=== PATIENT | male | born 1995 | race Caucasian/White ===

== ENCOUNTER 2016-06-27 17:49 | Emergency (ER) | payer OTHER ==
[2016-06-27 18:20] VITALS: TEMP 97.7; BMI 30.9
--- NOTE | 2016-06-27 18:20 | PDOC ---
Rapid Medical Evaluation Time Seen by Provider: 06/27/16 18:14 Medical Evaluation: Allergies Allergy/AdvReac Type Severity Reaction Status Date / Time APPLES Allergy Mild Itching Uncoded 03/13/15 19:05 ORANGES Allergy Mild Uncoded 03/13/15 19:05 SHRIMP Allergy Hives Uncoded 03/13/15 19:05 06/27/16 18:15 I have performed a brief in-person evaluation of this patient. The patient presents with a chief complaint of: weakness/ feeling of faintness. , Sweating- denies CP or palpitaions. Mothere took BP (is EMT) and told him had an irregular heartbeat. NO Hx of Cardiac arhythmias noncompliant with Abilify - States has Bipolar disease but "doesnt remember whatr medicatrions he is supposed to be" Pertinent physical exam findings: appears cognitively "scattered", has to be redirected to answer questions" I have ordered the following: RBS, EKG The patient will proceed to the ED for further evaluation. 06/27/16 18:22
--- NOTE | 2016-06-27 20:13 | PDOC ---
History of Present Illness - General Chief Complaint: Weakness Stated Complaint: IRREGULAR HEART BEAT Time Seen by Provider: 06/27/16 18:14 - History of Present Illness Initial Comments: 06/27/16 20:12 CHIEF COMPLAINT: "irregular heartbeat" HISTORY OF PRESENT ILLNESS: 20 yo M on Abiliedison (patient is unsure of diagnosis ) presents to ED with "irregular heartbeat" 6 days ago. Patient states that he was "feeling funny" last with "stomach pain, a little nausea, headache , dizziness, and I almost fainted." He states that his mother took his blood pressure and told him he had an "irregular heartbeat." At that time she gave him food to "bring up my blood sugar" and the symptoms resolved. Earlier today he felt "the symptoms were maybe starting again" but then he drank some water and felt better. He has no complaints at this time, including chest pain, shortness of breath, fever, chills, nausea, vomiting, headache, dizziness, or weakness, but states that "he just wanted to get checked out." No recent travel or sick contacts. PAST MEDICAL HISTORY: Denies past medical history FAMILY HISTORY: Denies SOCIAL HISTORY: Denies tobacco, alcohol, illicit drug use. SURGICAL HISTORY: Denies ALLERGIES: apples, oranges, shrimp REVIEW OF SYSTEMS General/Constitutional: Denies fever or chills. Denies weakness, weight change. HEENT: Denies change in vision. Denies ear pain or discharge. Denies sore throat. Cardiovascular: Denies chest pain or shortness of breath. Respiratory: Denies cough, wheezing, or hemoptysis. Gastrointestinal: Denies nausea, vomiting, diarrhea or constipation. Denies rectal bleeding. Genitourinary: Denies dysuria, frequency, or change in urination. Musculoskeletal: Denies joint or muscle swelling or pain. Denies neck or back pain. Skin and breasts: Denies rash or easy bruising. Neurologic: Denies headache, vertigo, loss of consciousness, or loss of sensation. PHYSICAL EXAM General Appearance: Well-appearing, appropriately dressed, playing video games in stretcher. No apparent distress. HEENT: EOMI, PERRLA. No conjunctival pallor. No photophobia, scleral icterus. Respiratory/Chest: Lungs CTAB. Cardiovascular: RRR. S1, S2. Gastrointestinal/Abdominal: Normal bowel sounds. Abdomen soft, non-distended. No tenderness or rebound tenderness. No organomegaly, pulsatile mass, guarding , hernia, hepatomegaly, splenomegaly. Musculoskeletal/Extremities: Normal inspection. FROM of all extremities, normal capillary refill. Pelvis Stable. No CVA tenderness. No tenderness to extremities, pedal edema, swelling, erythema or deformity. Integumentary: Appropriate color, dry, warm. No cyanosis, erythema, jaundice or rash Neurologic: plastics design engineer II-XII intact. Fully oriented, alert. Motor strength 5/5. No appreciable EOM palsy, facial droop or sensory deficit. Psych: Somewhat flat affect, easily distracted. 06/28/16 04:56 Past History - Past Medical History Allergies/Adverse Reactions: Allergies Allergy/AdvReac Type Severity Reaction Status Date / Time APPLES Allergy Mild Itching Uncoded 06/27/16 18:20 ORANGES Allergy Mild Uncoded 06/27/16 18:20 SHRIMP Allergy Hives Uncoded 06/27/16 18:20 Home Medications: Ambulatory Orders Aripiprazole [Abilify -] 12 mg PO DAILY 11/19/12 Asthma: Yes Psychiatric Problems: Yes (ANXIETY) Suicide Attempt (Hx): No - Immunization History Td Vaccination: No (HAS PERTUSSIS) TDAP Vaccination: No (HAS ACTIVE PERTUSSIS) Immunization Up to Date: Yes - Psycho/Social/Smoking Cessation Hx Anxiety: Yes Suicidal Ideation: No Smoking Status: No Smoking History: Never smoked Have you smoked in the past 12 months: No Number of Cigarettes Smoked Daily: 0 Hx Alcohol Use: No Drug/Substance Use Hx: No Substance Use Type: None *Physical Exam - Vital Signs Last Vital Signs Temp Pulse Resp BP Pulse Ox 97.7 F 86 20 126/69 98 06/27/16 18:16 06/27/16 18:16 06/27/16 18:16 06/27/16 18:16 06/27/16 18:16 ED Treatment Course - LABORATORY CBC & Chemistry Diagram: 06/27/16 21:41 06/27/16 21:41 Medical Decision Making - Medical Decision Making 06/28/16 04:56 20 yo M on Abilify (patient is unsure of diagnosis) presents to ED with "irregular heartbeat" 6 days ago. -CBC, CMP Labs unremarkable. Advised patient and mother of signs and symptoms for return to ER. Advised patient and mother to follow up with radiologic electronic specialist by the end of this week. Mother and patient verbalize understanding and agree to plan. *DC/Admit/Observation/Transfer Diagnosis at time of Disposition: Lightheaded - Discharge Dispostion Disposition: HOME Condition at time of disposition: Stable Admit: No - Referrals Referrals: Carmen Monroy MD [Primary Care Provider] - Michael Colón MD [Staff Physician] - - Patient Instructions Additional Instructions: As discussed, you must follow up with your primary care doctor's office and cardiology THIS WEEK. If you experience any new or worsening symptoms, please return to the ER immediately.
--- NOTE | 2016-06-27 21:18 | PDOC ---
*Physical Exam - Vital Signs Last Vital Signs Temp Pulse Resp BP Pulse Ox 97.7 F 86 20 126/69 98 06/27/16 18:16 06/27/16 18:16 06/27/16 18:16 06/27/16 18:16 06/27/16 18:16 ED Treatment Course - LABORATORY CBC & Chemistry Diagram: 06/27/16 21:41 06/27/16 21:41 Medical Decision Making - Medical Decision Making 06/27/16 21:17 agree with care from CAROLINE Flores. *DC/Admit/Observation/Transfer Diagnosis at time of Disposition: Lightheaded - Discharge Dispostion Disposition: HOME Condition at time of disposition: Stable - Referrals Referrals: Carmen Monroy MD [Primary Care Provider] - Michael Colón MD [Staff Physician] - - Patient Instructions Additional Instructions: As discussed, you must follow up with your primary care doctor's office and cardiology THIS WEEK. If you experience any new or worsening symptoms, please return to the ER immediately.
[2016-06-27 21:56] LABS: BASOPHIL 0.8 % (0-2.0); EOSINOPHIL 5.4 % (0-4.5); MCH 32.4 pg (25.7-33.7); MCHC 35.5 g/dl (32.0-35.9); MEAN CELL VOLUME 91.3 fl (80-96); MEAN PLT VOLUME 7.6 fl (7.5-11.1); NEUTROPHILS 61.1 % (42.8-82.8); PLATELET COUNT 262 K/MM3 (134-434); RDW 12.7 % (11.9-15.9); WHITE BLOOD COUNT 7.4 K/mm3 (4.0-10.0)
[2016-06-27 22:16] LABS: ALBUMIN 4.5 g/dl (3.4-5.0); ANION GAP 8 (8-16); BILIRUBIN,TOTAL 0.5 mg/dL (0.2-1.0); CALCIUM 9.2 mg/dL (8.5-10.1); CO2 29 mmol/L (21-32); CREATININE 1.1 mg/dL (0.7-1.3); GLUCOSE,RANDOM 104 mg/dL (74-106); SGOT/AST 17 U/L (15-37); SGPT/ALT 30 U/L (12-78); TOT PROT 7.7 g/dl (6.4-8.2)
[2016-06-27 22:17] LABS: ALK PHOS 75 U/L (45-117)
[2016-06-27 22:45] VITALS: BP 114/68; PULSE 77
--- NOTE | 2016-06-28 17:08 | EKG ---
Test Reason : Blood Pressure : / mmHG Vent. Rate : 067 BPM Atrial Rate : 067 BPM P-R Int : 150 ms QRS Dur : 104 ms QT Int : 386 ms P-R-T Axes : 065 044 024 degrees QTc Int : 407 ms SINUS RHYTHM WITH MARKED SINUS ARRHYTHMIA RSR' OR QR PATTERN IN V1 SUGGESTS RIGHT VENTRICULAR CONDUCTION DELAY BORDERLINE ECG NO PREVIOUS ECGS AVAILABLE Confirmed by RUSSELL TAPIA MD ([id number]) on 06/28/2016 5:08:19 PM Referred By: Confirmed By:RUSSELL TAPIA MD
== END 2016-06-27 22:51 | disposition home or self-care (01) ==
LOC: JER 17:49
DX: R42 Dizziness and giddiness (principal); F41.9 Anxiety disorder, unspecified; A37.90 Whooping cough, unspecified species without pneumonia; J45.909 Unspecified asthma, uncomplicated
CPT/HCPCS: 36415; 80053; 85025; 93005; 93010; 99283-25

== ENCOUNTER 2017-04-25 03:40 | Emergency (ER) | payer OTHER ==
[2017-04-25 04:07] VITALS: BP 118/72; PULSE 76; TEMP 97.6; BMI 31.0
--- NOTE | 2017-04-25 04:34 | PDOC ---
Attending Attestation - HPI HPI: 04/25/17 04:36 The patient is a 21 year old male, with a significant past medical history of, who presents to the emergency department with one episode of white stool at 2am this morning. The patient denies any other symptoms. He denies chest pain, shortness of breath, headache and dizziness. He denies fever, chills, nausea, vomit, diarrhea and constipation. He denies dysuria, frequency, urgency and hematuria. Allergies: NKDA - Physicial Exam PE: 04/25/17 04:36 GENERAL: Well developed, well nourished. Awake and alert. No acute distress. HEENT: Normocephalic, atraumatic. PERRLA, EOMI. No conjunctival pallor. Sclera are non- icteric. Moist mucous membranes. Oropharynx is clear. NECK: Supple. Full ROM. No JVD. Carotid pulses 2+ and symmetric, without bruits. No thyromegaly. No lymphadenopathy. CARDIOVASCULAR: Regular rate and rhythm. No murmurs, rubs, or gallops. Distal pulses are 2+ and symmetric. PULMONARY: No evidence of respiratory distress. Lungs clear to auscultation bilaterally. No wheezing, rales or rhonchi. ABDOMINAL: Soft. Non-tender. Non-distended. No rebound or guarding. No organomegaly. Normoactive bowel sounds. MUSCULOSKELETAL Normal range of motion at all joints. No bony deformities or tenderness. No CVA tenderness. EXTREMITIES: No cyanosis. No clubbing. No edema. No calf tenderness. SKIN: Warm and dry. Normal capillary refill. No rashes. No jaundice. NEUROLOGICAL: Alert, awake, appropriate. Cranial nerves 2-12 intact. Normoreflexic in the upper and lower extremities. Normal speech. Toes are down-going bilaterally. Gait is normal without ataxia. PSYCHIATRIC: Cooperative. Good eye contact. Appropriate mood and affect. ___ Documentation prepared by Lili Phipps, acting as medical dosimetrist for Neo Corona DO. <Lili Phipps - Last Filed: 04/25/17 04:36> - Resident Resident Name: Kamryn Castro - ED Attending Attestation I have performed the following: I have examined & evaluated the patient, The case was reviewed & discussed with the resident, I agree w/resident's findings & plan, Exceptions are as noted - Medical Decision Making 04/25/17 20:32 Pt treated and released <Neo Corona - Last Filed: 04/25/17 20:33>
--- NOTE | 2017-04-25 04:49 | PDOC ---
History of Present Illness - General Chief Complaint: Rectal Bleed Stated Complaint: WHITE STOOL Time Seen by Provider: 04/25/17 04:12 History Source: Patient Exam Limitations: No Limitations - History of Present Illness Initial Comments: This is a 21 YOM with h/o GERD (on ranitidine), asthma, and abilify use who presents c/o one episode of white stool this morning at 2 am. He explains that his mother was concerned and wanted him to come to the ED to be examined and to have a sample of his stool tested. The patient denies any additional symptoms ( no recent fever, chills, nausea, vomiting, diarrhea, constipation, bloody stool , black stool, abdominal pain, urinary symptoms, or other symptoms). He had URI symptoms about two weeks ago. He denies any contact with sick individuals recently. Past History - Past Medical History Allergies/Adverse Reactions: Allergies Allergy/AdvReac Type Severity Reaction Status Date / Time No Known Drug Allergies Allergy Verified 04/25/17 04:32 APPLES Allergy Mild Itching Uncoded 06/27/16 18:20 ORANGES Allergy Mild Itching Uncoded 04/25/17 04:31 SHRIMP Allergy Mild Hives Uncoded 04/25/17 04:30 Home Medications: Ambulatory Orders Aripiprazole [Abilify -] 12 mg PO DAILY 11/19/12 Ranitidine HCl [Zantac] 300 mg PO DAILY 04/25/17 Asthma: Yes COPD: No Psychiatric Problems: Yes (Anxiety) - Immunization History Td Vaccination: No (HAS PERTUSSIS) TDAP Vaccination: No (HAS ACTIVE PERTUSSIS) Immunization Up to Date: Yes - Suicide/Smoking/Psychosocial Hx Smoking Status: No Smoking History: Never smoked Have you smoked in the past 12 months: No Number of Cigarettes Smoked Daily: 0 Information on smoking cessation initiated: No Hx Alcohol Use: No Drug/Substance Use Hx: No Substance Use Type: None Review of Systems - Review of Systems Able to Perform ROS?: Yes Constitutional: No: Chills, Fever, Unexplained wgt Loss HEENTM: No: Nose Congestion, Throat Pain Respiratory: No: Cough, Shortness of Breath Cardiac (ROS): No: Chest Pain, Palpitations ABD/GI: Yes: Other (white stool). No: Constipated, Diarrhea, Nausea, Vomiting : No: Burning, Dysuria Musculoskeletal: No: Back Pain, Neck Pain Integumentary: No: Bruising, Rash Neurological: No: Headache, Numbness, Tingling, Weakness, Dizziness Endocrine: No: Unexplained Weight Gain, Unexplained Weight Loss *Physical Exam - Vital Signs Last Vital Signs Temp Pulse Resp BP Pulse Ox 97.6 F 76 20 118/72 99 04/25/17 04:05 04/25/17 04:05 04/25/17 04:05 04/25/17 04:05 04/25/17 04:05 - Physical Exam General Appearance: Yes: Nourished, Appropriately Dressed, Other (pleasant young adult male accompanied by similar-age male dental director, answers questions appropriately, standing for the duration of exam). No: Apparent Distress HEENT: positive: EOMI, BRENNAN, Normal Voice, Hearing Grossly Normal. negative: Scleral Icterus (R), Scleral Icterus (L), Nasal Congestion Neck: positive: Trachea midline, Supple. negative: Tender, Rigid Respiratory/Chest: positive: Lungs Clear, Normal Breath Sounds. negative: Respiratory Distress, Crackles, Rhonchi, Stridor, Wheezing Cardiovascular: positive: Regular Rhythm, Regular Rate. negative: Edema, Murmur Gastrointestinal/Abdominal: positive: Normal Bowel Sounds, Flat, Soft, Other ( offers examiner a stool sample in a pill bottle from his pocket, which appears very light colored and slightly greasy). negative: Tender, Organomegaly, Pulsatile Mass, Guarding Musculoskeletal: positive: Normal Inspection. negative: Decreased Range of Motion, Vertebral Tenderness Extremity: positive: Normal Capillary Refill, Normal Inspection, Normal Range of Motion. negative: Tender, Cyanosis Integumentary: positive: Normal Color, Dry, Warm. negative: Erythema, Rash, Bruising Neurologic: positive: hull builder II-XII NML intact (grossly), Fully Oriented, Alert, Normal Mood/Affect, Normal Response, Motor Strength 5/5 ED Treatment Course - LABORATORY CBC & Chemistry Diagram: 04/25/17 04:45 04/25/17 04:45 Medical Decision Making - Medical Decision Making 21 YOM with h/o GERD (on ranitidine), asthma, Abilify use, p/w acholic stool. Patient brought a sample but this is too small to test. VS wnl, no distress, no exam abnormalities. DDX IBNLT dietary changes, infectious (i.e. giardia), 04/25/17 05:16 Ordered is stool O&P, CBCD, CMP. 04/25/17 06:00 Labs have resulted within normal limits. Stool sample cannot be collected as patient is unable to give sample at this time. He is asymptomatic and comfortable with plan to go home and follow up with GI and PCP as OP. Referral info is given for GI. He is given stool sample collection cup. Return precautions are discussed. *DC/Admit/Observation/Transfer Diagnosis at time of Disposition: Acholic stool - Discharge Dispostion Disposition: HOME Condition at time of disposition: Stable Admit: No - Referrals Referrals: Carmen Monroy MD [Primary Care Provider] - Lew Way DO [Staff Physician] - - Patient Instructions Additional Instructions: You were seen in the ER for white stool this morning. We did blood laboratory tests and there were no concerning findings. We tried to collect a stool sample large enough to test in our lab, but this was not possible during your ER visit. Please take the sample collection cup and collect a sample of the white stool if you have another episode. Fill the cup about 25% full (that should be enough). Please follow up with a GI doctor - we are giving you the referral information. Please return to the ER if you have any new or worsening symptoms. - Post Discharge Activity
[2017-04-25 04:59] LABS: BASO % 1.5 % (0-2.0); HEMATOCRIT 45.6 % (35.4-49); HEMOGLOBIN 15.9 GM/dL (11.7-16.9); LYMPH % 36.4 % (8-40); MCH 31.9 pg (25.7-33.7); MCHC 34.8 g/dl (32.0-35.9); MEAN CELL VOLUME 91.6 fl (80-96); MONO % 6.5 % (3.8-10.2); NEUT % 49.6 % (42.8-82.8); PLATELET COUNT 228 K/MM3 (134-434); RBC 4.98 M/mm3 (4.00-5.60); WHITE BLOOD COUNT 7.3 K/mm3 (4.0-10.0)
[2017-04-25 05:20] LABS: ALBUMIN 4.3 g/dl (3.4-5.0); ALK PHOS 67 U/L (45-117); ANION GAP 7 (8-16); BILIRUBIN,TOTAL 0.3 mg/dL (0.2-1.0); BLOOD UREA NITROGEN 16 mg/dL (7-18); CALCIUM 8.4 mg/dL (8.5-10.1); CHLORIDE 106 mmol/L (98-107); CO2 29 mmol/L (21-32); CREATININE 1.2 mg/dL (0.7-1.3); GLUCOSE,RANDOM 101 mg/dL (74-106); POTASSIUM 3.7 mmol/L (3.5-5.1); SGOT/AST 24 U/L (15-37); SGPT/ALT 42 U/L (12-78); SODIUM 142 mmol/L (136-145); TOT PROT 7.5 g/dl (6.4-8.2)
== END 2017-04-25 06:00 | disposition home or self-care (01) ==
LOC: JER 03:40
DX: R19.5 Other fecal abnormalities (principal); K21.9 Gastro-esophageal reflux disease without esophagitis; J45.909 Unspecified asthma, uncomplicated; A37.90 Whooping cough, unspecified species without pneumonia; F41.9 Anxiety disorder, unspecified
CPT/HCPCS: 36415; 80053; 85025; 99282-25

== ENCOUNTER 2017-05-06 18:27 | Emergency (ER) | payer OTHER ==
[2017-05-06 19:08] VITALS: BP 116/75; PULSE 103; TEMP 98.5; BMI 31.0
--- NOTE | 2017-05-06 19:08 | PDOC ---
Rapid Medical Evaluation Time Seen by Provider: 05/06/17 19:06 Medical Evaluation: Allergies Allergy/AdvReac Type Severity Reaction Status Date / Time No Known Drug Allergies Allergy Verified 05/06/17 19:06 APPLES Allergy Mild Itching Uncoded 05/06/17 19:06 ORANGES Allergy Mild Itching Uncoded 05/06/17 19:06 SHRIMP Allergy Mild Hives Uncoded 05/06/17 19:06 05/06/17 19:06 The patient presents with a chief complaint of: [Fever, bodyaches, headache. " think I have the flu" Friend with same] I have performed a brief in-person evaluation of this patient. Pertinent physical exam findings: vss, [Lungs clear, HRR, abdomen is soft, nondistended] I have ordered the following: [rapid influenza] The patient will proceed to the ED for further evaluation. Discharge Disposition - Diagnosis Fever - Referrals - Patient Instructions - Post Discharge Activity
[2017-05-06] MEDS ORDERED: IBUPROFEN 400 MG TABLET (FP) PO ONE ×2 (19:34→19:45)
--- NOTE | 2017-05-06 19:36 | PDOC ---
History of Present Illness - General Chief Complaint: Cold Symptoms Stated Complaint: FEVER Time Seen by Provider: 05/06/17 19:06 History Source: Patient - History of Present Illness Timing/Duration: reports: this morning Severity: reports: moderate Associated Symptoms: reports: cough, muscle aches. denies: chest pain/soreness , earache, facial pain, fever/chills, nasal congestion, nasal drainage, sore throat, wheezing Past History - Past Medical History Allergies/Adverse Reactions: Allergies Allergy/AdvReac Type Severity Reaction Status Date / Time No Known Drug Allergies Allergy Verified 05/06/17 19:06 APPLES Allergy Mild Itching Uncoded 05/06/17 19:06 ORANGES Allergy Mild Itching Uncoded 05/06/17 19:06 SHRIMP Allergy Mild Hives Uncoded 05/06/17 19:06 Home Medications: Ambulatory Orders Aripiprazole [Abilify -] 12 mg PO DAILY 11/19/12 Asthma: Yes COPD: No Psychiatric Problems: Yes (Anxiety) - Immunization History Td Vaccination: No (HAS PERTUSSIS) TDAP Vaccination: No (HAS ACTIVE PERTUSSIS) Immunization Up to Date: Yes - Suicide/Smoking/Psychosocial Hx Smoking Status: No Smoking History: Never smoked Have you smoked in the past 12 months: No Number of Cigarettes Smoked Daily: 0 Information on smoking cessation initiated: No Hx Alcohol Use: No Drug/Substance Use Hx: No Substance Use Type: None Respiratory Specific PMHX - Complaint Specific PMHX Bronchitis: Yes (h/o bronchitis) Review of Systems - Review of Systems Constitutional: Yes: Malaise. No: Chills, Fever HEENTM: No: Ear Pain, Throat Pain Respiratory: Yes: Cough. No: Shortness of Breath, Wheezing *Physical Exam - Vital Signs Last Vital Signs Temp Pulse Resp BP Pulse Ox 98.5 F 103 H 18 116/75 100 05/06/17 19:07 05/06/17 19:07 05/06/17 19:07 05/06/17 19:07 05/06/17 19:07 - Physical Exam General Appearance: Yes: Appropriately Dressed. No: Apparent Distress HEENT: positive: Normal ENT Inspection, Normal Voice. negative: Scleral Icterus (R), Scleral Icterus (L) Neck: positive: Supple. negative: Lymphadenopathy (R), Lymphadenopathy (L) Respiratory/Chest: positive: Lungs Clear, Normal Breath Sounds. negative: Respiratory Distress Cardiovascular: positive: Regular Rate, S1, S2 Integumentary: positive: Dry, Warm Neurologic: positive: Fully Oriented, Alert, Normal Mood/Affect Medical Decision Making - Medical Decision Making 05/06/17 19:34 21-year-old male history of asthma, here with body aches, headaches and malaise since this a.m. Also complaining of dry cough, no sob, wheezing, sore throat, ear pain, fever or chills. No sick contacts or recent travel. Patient well- appearing but mildly tachycardic to 103 with unremarkable exam otherwise. Pain control. Flu pending 05/06/17 19:36 05/06/17 20:33 Flu neg. Dc w/ supportive tx *DC/Admit/Observation/Transfer Diagnosis at time of Disposition: Viral syndrome - Discharge Dispostion Disposition: HOME Condition at time of disposition: Good - Referrals Referrals: Carmen Monroy MD [Primary Care Provider] - - Patient Instructions Printed Discharge Instructions: DI for Viral Syndrome Additional Instructions: Your flu test was negative. Rest maintain adequate hydration and take Motrin and/or Tylenol for pain/fever - Post Discharge Activity
== END 2017-05-06 20:42 | disposition home or self-care (01) ==
LOC: JERFT 18:27
DX: B34.9 Viral infection, unspecified (principal); A37.90 Whooping cough, unspecified species without pneumonia
CPT/HCPCS: 87804; 99281-25

== ENCOUNTER 2018-04-25 17:50 | Emergency (ER) | payer OTHER ==
[2018-04-25 17:56] VITALS: BP 131/62; PULSE 74; TEMP 98; BMI 31.7
--- NOTE | 2018-04-25 19:03 | PDOC ---
History of Present Illness - General Chief Complaint: Injury Stated Complaint: FACIAL INJURY Time Seen by Provider: 04/25/18 18:01 - History of Present Illness Initial Comments: 04/25/18 19:01 22-year-old male presents for evaluation of headache after being struck in the side of the head by a door he points to the left parietal scalp no loss of consciousness post injury nausea vomiting has a mild headache relieved with Motrin Past History - Past Medical History Allergies/Adverse Reactions: Allergies Allergy/AdvReac Type Severity Reaction Status Date / Time No Known Drug Allergies Allergy Verified 04/25/18 17:53 APPLES Allergy Mild Itching Uncoded 04/25/18 17:53 ORANGES Allergy Mild Itching Uncoded 04/25/18 17:53 SHRIMP Allergy Mild Hives Uncoded 04/25/18 17:53 Home Medications: Ambulatory Orders Aripiprazole [Abilify -] 12 mg PO DAILY 11/19/12 Ranitidine [Zantac -] 150 mg PO BID 04/25/18 Asthma: Yes COPD: No Psychiatric Problems: Yes (Anxiety) - Immunization History Td Vaccination: No (HAS PERTUSSIS) TDAP Vaccination: No (HAS ACTIVE PERTUSSIS) Immunization Up to Date: Yes - Suicide/Smoking/Psychosocial Hx Smoking Status: No Smoking History: Never smoked Have you smoked in the past 12 months: No Number of Cigarettes Smoked Daily: 0 Hx Alcohol Use: No Drug/Substance Use Hx: No Substance Use Type: None Review of Systems - Review of Systems Neurological: Yes: Headache *Physical Exam - Vital Signs Last Vital Signs Temp Pulse Resp BP Pulse Ox 98 F 74 18 131/62 98 04/25/18 17:54 04/25/18 17:54 04/25/18 17:54 04/25/18 17:54 04/25/18 17:54 - Physical Exam Comments: 04/25/18 19:02 HEAD: NC/AT EYES: Conjuntiva clear EOMI, PERRL Ears: Canals and TM's normal NOSE: No d/c THROAT: Moist mucous membrances, oral pharanx clear, uvula midline NECK: Supple without adenopathy CARDIAC: S1 S2 LUNGS: CTA Full and Equal breath sounds ABDOMEN: Soft NT ND MS: Full ROM in all joints without edema NEUROLOGIC: No gross sensory or motor deficits, NVID SKIN: Normal color and temperature no lesions or rashes Moderate Sedation - Procedure Monitoring Vital Signs: Procedure Monitoring Vital Signs Temperature 98 F 04/25/18 17:54 Pulse Rate 74 04/25/18 17:54 Respiratory Rate 18 04/25/18 17:54 Blood Pressure 131/62 04/25/18 17:54 O2 Sat by Pulse Oximetry (%) 98 04/25/18 17:54 ED Treatment Course - RADIOLOGY Radiology Studies Ordered: Category Date Time Status HEAD CT WITHOUT CONTRAST [CT] Stat CT Scan 04/25/18 18:22 Completed *DC/Admit/Observation/Transfer Diagnosis at time of Disposition: Contusion of scalp - Discharge Dispostion Disposition: HOME Condition at time of disposition: Stable Decision to Admit order: No - Referrals - Patient Instructions Additional Instructions: He may take Tylenol and Motrin as directed for pain. CAT scan was normal today. Return to the emergency room should symptoms worsen or go unresolved and follow the primary care physician one to 2 days for further evaluation and treatment options. - Post Discharge Activity
== END 2018-04-25 19:10 | disposition home or self-care (01) ==
LOC: JERFT 17:50
DX: S00.03XA Contusion of scalp, initial encounter (principal); W22.8XXA Striking against or struck by other objects, initial encounter; Y93.89 Activity, other specified; Y92.89 Other specified places as the place of occurrence of the external cause; Y99.8 Other external cause status; A37.90 Whooping cough, unspecified species without pneumonia
CPT/HCPCS: 70450-TC; 99281-25

== ENCOUNTER 2019-01-07 23:26 | Emergency (ER) | payer OTHER ==
[2019-01-07 23:34] VITALS: TEMP 97.4; BMI 34.0
--- NOTE | 2019-01-08 01:01 | PDOC ---
History of Present Illness - General Chief Complaint: Allergic Reaction Stated Complaint: DIFFICULTY BREATHING Time Seen by Provider: 01/08/19 00:32 History Source: Patient Exam Limitations: No Limitations Past History - Past Medical History Allergies/Adverse Reactions: Allergies Allergy/AdvReac Type Severity Reaction Status Date / Time No Known Drug Allergies Allergy Verified 01/07/19 23:34 APPLES Allergy Mild Itching Uncoded 01/07/19 23:34 ORANGES Allergy Mild Itching Uncoded 01/07/19 23:34 SHRIMP Allergy Mild Hives Uncoded 01/07/19 23:34 Home Medications: Ambulatory Orders Aripiprazole [Abilify -] 12 mg PO DAILY 11/19/12 Ranitidine HCl [Zantac] 150 mg PO BID #60 tablet 04/25/18 Ranitidine [Zantac -] 150 mg PO BID 04/25/18 Prednisone [Deltasone] 40 mg PO DAILY #10 tablet 01/08/19 Asthma: Yes COPD: No Psychiatric Problems: Yes (Anxiety) - Immunization History Td Vaccination: No (HAS PERTUSSIS) TDAP Vaccination: No (HAS ACTIVE PERTUSSIS) Immunization Up to Date: Yes - Psycho Social/Smoking Cessation Hx Smoking Status: No Smoking History: Never smoked Have you smoked in the past 12 months: No Number of Cigarettes Smoked Daily: 0 Information on smoking cessation initiated: No Hx Alcohol Use: No Drug/Substance Use Hx: No Substance Use Type: None *Physical Exam - Vital Signs Last Vital Signs Temp Pulse Resp BP Pulse Ox 97.4 F L 71 17 129/65 97 01/07/19 23:31 01/07/19 23:31 01/07/19 23:31 01/07/19 23:31 01/07/19 23:31 - Physical Exam General Appearance: No: Apparent Distress HEENT: positive: Pharynx Normal, Other (slight redness along both ears, no angioedema, no tongue swelling) Respiratory/Chest: positive: Lungs Clear, Normal Breath Sounds. negative: Respiratory Distress Cardiovascular: positive: Regular Rhythm, Regular Rate, S1, S2. negative: Murmur Gastrointestinal/Abdominal: positive: Normal Bowel Sounds, Soft. negative: Tender, Distended, Guarding, Rebound Integumentary: negative: Rash Neurologic: positive: Alert, Normal Mood/Affect Medical Decision Making - Medical Decision Making 23 y/o M with no sig pmh presents with ?allergic reaction from today around 10 PM. Is unsure if it was from spice on a taco (eaten around 9 PM) which he has never tried or a new shampoo he used today (slightly before 10 PM). Patient has Epi-pen which he carries for other allergies, but did not use the Epi-pen. Is c/ o B/L ears burning and sob. He took Benadryl 50 mg around 10 PM which has helped with his sxs. Denies noting any other rash on body. Denies other complaints Patient currently appears well; no evidence of anaphylaxis Was to d/c, but patient's mother demanding rx for steroids, stating she is concerned that patient will go into anaphylactic shock if he does not get a rx for steroids; mentions he has had allergies often in the past 01/08/19 01:01 Discharge - Discharge Information Problems reviewed: Yes Clinical Impression/Diagnosis: Allergic reaction Qualifiers: Encounter type: initial encounter Qualified Code(s): T78.40XA - Allergy, unspecified, initial encounter Condition: Stable Disposition: HOME - Admission No - Additional Discharge Information Prescriptions: Prednisone [Deltasone] 40 mg PO DAILY #10 tablet Prescription Drug Monitoring Program (I-STOP) results: I-STOP not reviewed - Follow up/Referral Referrals: Justice Coburn [Primary Care Provider] - - Patient Discharge Instructions Patient Printed Discharge Instructions: DI for General Allergic Reactions Additional Instructions: Thank you for choosing [facility]. It was a pleasure taking care of you. Take Benadryl every 6-8 hours as needed for itching. Do not take more than 300 mg in 1 day Avoid eating the spice you used on the taco Consider following up with forestry support specialist regarding your allergies Return to the Emergency Department if your symptoms worsen or persist or have other concerning symptoms. - Post Discharge Activity
[2019-01-08] MEDS ORDERED: predniSONE 20 MG TABLET (UD) PO ONE (01:07)
[2019-01-08] MEDS ORDERED: predniSONE 20 MG TABLET (UD) ONE (01:18)
[2019-01-08 02:47] VITALS: BP 107/54; PULSE 77
== END 2019-01-08 01:20 | disposition home or self-care (01) ==
LOC: JER 23:26
DX: T78.40XA Allergy, unspecified, initial encounter (principal); Z91.013 Allergy to seafood; Z91.018 Allergy to other foods; F41.9 Anxiety disorder, unspecified; J45.909 Unspecified asthma, uncomplicated
CPT/HCPCS: 99282-25

== ENCOUNTER 2019-01-16 02:48 | Emergency (ER) | payer OTHER ==
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
[2019-01-16 04:30] VITALS: BP 124/63; PULSE 79; TEMP 98.3; BMI 30.9
[2019-01-16 05:00] LABS: URINE APPEARANCE CLEAR; URINE BILIRUBIN NEGATIVE (NEGATIVE); URINE COLOR YELLOW; URINE GLUCOSE (UA) NEGATIVE (NEGATIVE); URINE KETONE NEGATIVE (NEGATIVE); URINE LEUK ESTERASE NEGATIVE (NEGATIVE); URINE NITRITE NEGATIVE (NEGATIVE); URINE PROTEIN NEGATIVE (NEGATIVE); URINE UROBILINOGEN 0.2 mg/dL (0.2-1.0)
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
== END 2019-01-16 05:39 | disposition home or self-care (01) ==
LOC: JER 02:48
DX: R30.0 Dysuria (principal); F41.9 Anxiety disorder, unspecified; F13.10 Sedative, hypnotic or anxiolytic abuse, uncomplicated; K21.9 Gastro-esophageal reflux disease without esophagitis; J45.909 Unspecified asthma, uncomplicated; Z91.013 Allergy to seafood; Z91.018 Allergy to other foods; Z11.3 Encounter for screening for infections with a predominantly sexual mode of transmission; Z11.4 Encounter for screening for human immunodeficiency virus [HIV]
CPT/HCPCS: 36415; 81003; 87086; 87389; 87491; 87591; 99282-25

== ENCOUNTER 2019-02-24 14:10 | Emergency (ER) | payer OTHER ==
[2019-02-24 14:20] VITALS: BP 123/66; PULSE 78; TEMP 98; BMI 34.0
[2019-02-24] MEDS ORDERED: DEXAMETHASONE LIQUID 0.5 MG/5 ML PO ONE (14:56)
[2019-02-24] MEDS ORDERED: ALBUTEROL SO4 2.5/IPRATROPIUM 0.5 INH SOL 3 ML VIAL.NEB. NEB ONE (14:57)
[2019-02-24] MEDS ORDERED: DEXAMETHASONE SOD PHOSPHATE 10 MG/1 ML VIAL ONE (14:57)
[2019-02-24] MEDS: ALBUTEROL SO4 2.5/IPRATROPIUM 0.5 INH SOL 3 ML VIAL.NEB. NEB SCH ×3 (15:00→15:36)
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
== END 2019-02-24 15:40 | disposition home or self-care (01) ==
LOC: JERFT 14:10
PROC: 3E0F7GC Introduction of Other Therapeutic Substance into Respiratory Tract, Via Natural or Artificial Opening (ICD-10-PCS; principal; 2019-02-24)
DX: T60.91XA Toxic effect of unspecified pesticide, accidental (unintentional), initial encounter (principal); J68.3 Other acute and subacute respiratory conditions due to chemicals, gases, fumes and vapors; J45.998 Other asthma; R06.02 Shortness of breath; Y92.038 Other place in apartment as the place of occurrence of the external cause; F31.9 Bipolar disorder, unspecified; F41.9 Anxiety disorder, unspecified; Z91.013 Allergy to seafood; Z91.018 Allergy to other foods
CPT/HCPCS: 94640; 99281-25

== ENCOUNTER 2019-11-24 20:37 | Emergency (ER) | payer OTHER ==
[2019-11-24] MEDS ORDERED: KETOROLAC TROMETHAMINE 30 MG/1 ML VIAL IM ONE (20:46)
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
[2019-11-24 20:48] VITALS: BP 116/61; PULSE 78; TEMP 98.6; BMI 34.0
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
[2019-11-24] MEDS ORDERED: KETOROLAC TROMETHAMINE 30 MG/1 ML VIAL ONE (21:06)
== END 2019-11-24 21:30 | disposition home or self-care (01) ==
LOC: JERFT 20:37
PROC: 3E0233Z Introduction of Anti-inflammatory into Muscle, Percutaneous Approach (ICD-10-PCS; principal; 2019-11-24)
DX: M54.2 Cervicalgia (principal); S16.1XXA Strain of muscle, fascia and tendon at neck level, initial encounter
CPT/HCPCS: 99284-25